=== PATIENT | female | born 1990 | race Caucasian/White ===

== ENCOUNTER → 2021-01-01 07:44 | Outpatient (CLI) | payer BC, SELFPAY ==
--- NOTE | 2021-01-01 07:47 | MR_ITS ---
PROCEDURE: MR HEAD/BRAIN WO CON CLINICAL INDICATION: FREQUENT HEADACHES COMPARISON: No exams were available for comparison TECHNIQUE: Routine multiplanar multi echo sequences are performed without gadolinium enhancement. FINDINGS: No midline shift, mass effect, intracranial hemorrhage, or hydrocephalus. No evidence of acute infarction. The cerebellopontine angles, cerebellum, and brainstem have an unremarkable appearance. The the pituitary, optic chiasm, corpus callosum, and craniocervical junction have an unremarkable appearance. Prominent cisterna magna is present as a normal variant. Unremarkable white matter signal intensity. No mastoid effusion. There is a small retention cyst involving the left maxillary sinus posteriorly at 13 mm. IMPRESSION: No acute intracranial findings. Negative MRI of the brain without contrast. Small left maxillary sinus retention cyst Dictated by: Carroll Interiano MD 01/02/2021 13:05 Carroll Interiano MD in [place] 01/02/2021 13:05
== END ==
PROVIDERS: PCP Family Medicine; Visit Provider Nurse Practitioner Family
DX: R51.9 Headache, unspecified (principal)
CPT/HCPCS: 70551

== ENCOUNTER → 2021-02-08 13:01 | Outpatient (CLI) | payer BC, SELFPAY | LOC: SL 13:02 | PROVIDERS: PCP Nurse Practitioner Family; Visit Provider Nurse Practitioner Family | DX: G47.30 Sleep apnea, unspecified (principal) | CPT/HCPCS: G0399 ==

== ENCOUNTER → 2021-02-08 17:11 | Outpatient (CLI) | payer BC, SELFPAY ==
--- NOTE | 2021-02-08 17:11 | MR_ITS ---
PROCEDURE INFORMATION: Exam: MRA Head Without Contrast; Arteriography Exam date and time: 02/08/2021 5:11 PM Age: 30 years old Clinical indication: Pain; Headache; Additional info: Worsening of headaches. Constant headache x11 months. No injury or trauma. Prior MR 01-01-21 TECHNIQUE: Imaging protocol: Magnetic resonance angiography head without contrast. Exam focused on the arteries. COMPARISON: MR HEAD/BRAIN WO CON 01/01/2021 8:11 AM FINDINGS: ANTERIOR CIRCULATION: Right internal carotid artery: Intracranial segment is patent with no significant stenosis. No aneurysm. Right middle cerebral artery: No occlusion or significant stenosis. No aneurysm. Right anterior cerebral artery: No occlusion or significant stenosis. No aneurysm. Left internal carotid artery: Intracranial segment is patent with no significant stenosis. No aneurysm. Left middle cerebral artery: No occlusion or significant stenosis. No aneurysm. Left anterior cerebral artery: No occlusion or significant stenosis. No aneurysm. POSTERIOR CIRCULATION: Right vertebral artery: No occlusion or significant stenosis. No aneurysm. Left vertebral artery: No occlusion or significant stenosis. No aneurysm. Basilar artery: No occlusion or significant stenosis. No aneurysm. Right posterior cerebral artery: No occlusion or significant stenosis. No aneurysm. Left posterior cerebral artery: No occlusion or significant stenosis. No aneurysm. IMPRESSION: Unremarkable MRA of the intracranial circulation.
== END ==
LOC: RAD 17:11
PROVIDERS: PCP Nurse Practitioner Family; Visit Provider Nurse Practitioner Family
DX: R51.9 Headache, unspecified (principal); G89.29 Other chronic pain
CPT/HCPCS: 70544

== ENCOUNTER 2022-01-17 08:02 | Emergency (ER) | payer BC, SELFPAY ==
[2022-01-17] VITALS (9 sets, daily range): BP systolic 101–177; BP diastolic 59–76; PULSE 80–111; RESP 16–20; TEMP 36.6; O2SAT 96–100; BMI 42.0; BMI 40.7
--- NOTE | 2022-01-17 08:43 | EXP.UTC ---
Discharge Plan Disposition Patient Disposition: Home, Self-Care Condition: Good Prescriptions Prescriptions: New ciprofloxacin HCl 750 mg tablet 750 mg PO DAILY Qty: 3 0RF ondansetron [ondansetron] 4 mg tablet,disintegrating 4 mg PO TIDP PRN (Reason: Nausea) Qty: 10 0RF No Action sertraline 100 mg tablet 100 mg PO DAILY atogepant 60 mg tablet 60 mg PO DAILY Qty: 30 5RF norethindrone (contraceptive) 0.35 mg tablet 0.35 mg PO DAILY Label Comments: TAKE 1 TABLET BY MOUTH ONCE DAILY rizatriptan 10 mg tablet,disintegrating See Rx Instructions PO .COMPLEX PRN (Reason: intractable headache) Qty: 10 0RF Rx Instructions: take 1 tab at onset of headache; if no relief may repeat 1 tab after at least 2 hrs; max = 2 tabs/24 hr PO metformin 850 mg tablet 850 mg PO DAILY omeprazole magnesium 20 mg tablet,delayed release (DR/EC) 40 mg PO DAILY Referrals Follow up/Referrals: Mandy Stevens APRN [Primary Care Provider] - See instructions Clinical Impressions Clinical Impression: Acute infectious diarrhea Stand Alone Forms Stand Alone Forms: Work/School Release Instructions Patient Instructions: DI for Diarrhea and Traveler's Diarrhea -- Adult Discharge ED [place]: [place] [facility] [place] General Chief complaint: Nausea/Vomiting/Diarrhea Stated complaint: Abd pain, fatigue, SALDIVAR Mode of Arrival: Ambulatory Source of Information: Patient Limitations: No Limitations Time Seen by Provider: 01/17/22 08:43 Description of Symptoms (Recalled from Triage Doc. by RN): PATIENT C/O DIARRHEA, MID-UPPER ABDOMINAL CRAMPING, NAUSEA, DECREASED ENERGY, AND HEADACHE THAT STARTED FRIDAY. HEENT Symptoms (Recalled from RN notes): Yes Resp Symptoms (Recalled from RN notes): No Skin Symptoms (Recalled from RN notes): No MS Symptoms (Recalled from RN notes): No Functional Status (Recalled from RN notes): WNL History of Present Illness Provider Complaint: Patient states that she started feeling bad on Friday States that she started with watery diarrhea, and has continued to have watery diarrhea, nausea but no vomiting, cramping in her mid abdomen body aches and fatigue States that she has a bad stomach and today she was still having diarrhea so she came in to get checked out States that she has had gall bladder removed and [place] gastric [place] [address] [place] Related Data Home Medications Medication Instructions Recorded Confirmed metformin 850 mg tablet 850 mg PO DAILY PCOS 01/29/21 01/17/22 omeprazole magnesium 20 mg 40 mg PO DAILY stomach 01/29/21 03/27/21 tablet,delayed release sertraline 100 mg tablet 100 mg PO DAILY mood 01/29/21 01/17/22 norethindrone (contraceptive) 0.35 0.35 mg PO DAILY control 03/27/21 01/17/22 mg tablet Previous Rx's Medication Instructions Recorded atogepant 60 mg tablet 60 mg PO DAILY chronic migraine 01/29/21 #30 tabs rizatriptan 10 mg disintegrating See Rx Instructions PO .COMPLEX 03/27/21 tablet PRN intractable headache #10 tabs ciprofloxacin HCl 750 mg tablet 750 mg PO DAILY #3 tabs 01/17/22 ondansetron 4 mg disintegrating 4 mg PO TIDP PRN Nausea #10 tabs 01/17/22 tablet Allergies Allergy/AdvReac Type Severity Reaction Status Date / Time clarithromycin Allergy Intermediate Hives Verified 03/27/21 10:29 sucralfate [From Carafate] Allergy Mild hives Verified 03/27/21 10:29 Worker's Comp Is this a Worker's Comp case?: No PFSH PFSH Surgical History (Updated 01/17/22 @ 08:42 by Clari Benavides RN) History of cholecystectomy Social History (Updated 01/17/22 @ 08:42 by Clari Benavides RN) Smoking Status: Never smoker alcohol intake: current substance use type: denies use current occupational status: employed Travel in the last 8 weeks: None household members: family and children housing: house caffeine: No ROS Obtained: Yes All systems reviewed & no additional
[2022-01-17 08:55] LABS: UTC Influenza A Antigen Negative (Negative)
[2022-01-17 08:56] LABS: UTC Influenza B Antigen Negative (Negative)
[2022-01-17 09:05] LABS: Adenovirus F 40/41, stool Not Detected (NotDetected); Astrovirus Not Detected (NotDetected); Campylobacter Not Detected (NotDetected); Clostridium Difficile A/B, PCR Not Detected (NotDetected); Cryptosporidium Not Detected (NotDetected); Cyclospora Cayetanesis Not Detected (NotDetected); Entamoeba histolytica Not Detected (NotDetected); Enteropathogenic E coli Not Detected (NotDetected); Enterotoxigenic E coli Not Detected (NotDetected); Giardia lamblia Not Detected (NotDetected); Norovirus Not Detected (NotDetected); Plesimonas Shigalloides, PCR Not Detected (NotDetected); Rotavirus A Not Detected (NotDetected); Salmonella, PCR Not Detected (NotDetected); Shiga-like toxin E coli Not Detected (NotDetected); Shigella Enterovasive E coli Not Detected (NotDetected); Vibrio Cholerae Not Detected (NotDetected); Vibrio, PCR Not Detected (NotDetected); Yersinia Entercolitica, PCR Not Detected (NotDetected)
--- NOTE | 2022-01-17 09:51 | CT_ITS ---
FINAL REPORT TECHNIQUE: Postcontrast axial images through the abdomen and pelvis were performed. This study was performed with techniques to keep radiation doses as low as reasonably achievable, (ALARA). Individualized dose reduction techniques using automated exposure control or adjustment of mA and/or kV according to the patient's size were employed. CLINICAL HISTORY: diarrhea, history of gastric sleeve FINDINGS: Abdomen: There is a small sliding-type hiatal hernia. Postoperative changes are seen from gastric sleeve. The liver is mildly fatty infiltrated. The gallbladder is absent. The spleen is unremarkable. The adrenals are normal. The pancreas is unremarkable. The kidneys enhance appropriately. The aorta is normal in caliber. No free fluid or adenopathy is identified. No findings for mechanical bowel obstruction are identified. There is fluid within the colon. There is no mucosal thickening or pericolonic inflammation. Pelvis: The appendix is not identified. The urinary bladder is unremarkable. No free fluid, free air, abscess or adenopathy is identified. The uterus is anteverted. IMPRESSION: Fluid throughout the colon. Postoperative change from gastric sleeve. Reviewed, Interpreted and Dictated by Isrrael Prasad MD Transcribed by Sabino Barnes Authenticated and [facility]
--- NOTE | 2022-01-17 09:54 | HMH.EDGENADL ---
Discharge Plan Disposition Patient Disposition: Home, Self-Care Condition: Good Prescriptions Prescriptions: New ciprofloxacin HCl 750 mg tablet 750 mg PO DAILY Qty: 3 0RF ondansetron [ondansetron] 4 mg tablet,disintegrating 4 mg PO TIDP PRN (Reason: Nausea) Qty: 10 0RF No Action sertraline 100 mg tablet 100 mg PO DAILY atogepant 60 mg tablet 60 mg PO DAILY Qty: 30 5RF norethindrone (contraceptive) 0.35 mg tablet 0.35 mg PO DAILY Label Comments: TAKE 1 TABLET BY MOUTH ONCE DAILY rizatriptan 10 mg tablet,disintegrating See Rx Instructions PO .COMPLEX PRN (Reason: intractable headache) Qty: 10 0RF Rx Instructions: take 1 tab at onset of headache; if no relief may repeat 1 tab after at least 2 hrs; max = 2 tabs/24 hr PO metformin 850 mg tablet 850 mg PO DAILY omeprazole magnesium 20 mg tablet,delayed release (DR/EC) 40 mg PO DAILY Referrals Follow up/Referrals: Mandy Stevens APRN [Primary Care Provider] - See instructions Clinical Impressions Clinical Impression: Acute infectious diarrhea Instructions Patient Instructions: DI for Diarrhea and Traveler's Diarrhea -- Adult Discharge ED Provider: Jimmy Joseph General Adult HPI General Chief complaint: Nausea/Vomiting/Diarrhea Stated complaint: Abd pain, fatigue, SALDIVAR Time Seen by Provider: 01/17/22 08:43 Mode of Arrival: Ambulatory Source of Information: Patient Limitations: No Limitations Description of Symptoms (Recalled from ER Triage Doc. by RN): PATIENT C/O DIARRHEA, MID-UPPER ABDOMINAL CRAMPING, NAUSEA, DECREASED ENERGY, AND HEADACHE THAT STARTED FRIDAY. History of Present Illness HPI narrative: Patient is a 31-year-old female with a past medical history of gastric sleeve, diabetes, GERD who presents with concern for diarrhea. She says that starting on Friday she got acute onset of diarrhea. She says that it is profuse and watery. No recent antibiotic usage. She says that she is also having some upper abdominal cramping but says that it is more of a generalized discomfort in her abdomen. She says that she has been quite nauseous during this time as well. Denies any hematemesis or hematochezia. She states that she feels like she does not have much energy. She has had a cholecystectomy in the past. Denies any history of complications with her gastric sleeve. Has not had much of an appetite due to the nausea. She was seen in the urgent care earlier and when her IV was placed she had an episode in which she became unconscious and had seizure-like activity. She had a short postictal phase that was reported to be only a few seconds and she was back to her normal baseline. No history of seizure-like activity. Denies any fever or chills. Related Data Home Medications Medication Instructions Recorded Confirmed metformin 850 mg tablet 850 mg PO DAILY PCOS 01/29/21 01/17/22 omeprazole magnesium 20 mg 40 mg PO DAILY stomach 01/29/21 03/27/21 tablet,delayed release sertraline 100 mg tablet 100 mg PO DAILY mood 01/29/21 01/17/22 norethindrone (contraceptive) 0.35 0.35 mg PO DAILY control 03/27/21 01/17/22 mg tablet Previous Rx's Medication Instructions Recorded atogepant 60 mg tablet 60 mg PO DAILY chronic migraine 01/29/21 #30 tabs rizatriptan 10 mg disintegrating See Rx Instructions PO .COMPLEX 03/27/21 tablet PRN intractable headache #10 tabs ciprofloxacin HCl 750 mg tablet 750 mg PO DAILY #3 tabs 01/17/22 ondansetron 4 mg disintegrating 4 mg PO TIDP PRN Nausea #10 tabs 01/17/22 tablet Allergies Allergy/AdvReac Type Severity Reaction Status Date / Time clarithromycin Allergy Intermediate Hives Verified 03/27/21 10:29 sucralfate [From Carafate] Allergy Mild hives Verified 03/27/21 10:29 [facility] Surgical History (Updated 01/17/22 @ 08:42 by Clari Benavides RN) History of cholecystectomy Social History (Updated 01/17/22 @ 08:42 by Clari Boudreaux
[2022-01-17 10:01] LABS: Basophils % 0.5 % (0.1-2.0); Eosinophils # 0.2 K/mm3 (0.0-0.4); Eosinophils % 2.2 % (0.1-12.0); Hematocrit 36.8 % (37.0-47.0); Hemoglobin 11.8 g/dL (12.2-16.2); Lymphocytes # 1.3 K/mm3 (0.7-4.5); Lymphocytes % 15.2 % (10-50); Mean Corpuscular HGB Conc 32.2 g/dL (31.8-35.4); Mean Corpuscular Hemoglobin 25.9 pg (27.0-31.2); Mean Corpuscular Volume 80.4 fl (81-99); Mean Platelet Volume 7.7 fl (7.4-10.4); Monocytes # 0.4 K/mm3 (0.1-1.0); Neutrophils # 6.4 K/mm3 (1.8-7.8); Neutrophils % 76.9 % (37.0-80.0); Platelet Count 655 K/mm3 (142-424); Red Blood Count 4.57 M/mm3 (4.20-5.40); Red Cell Distribution Width 17.1 % (11.5-17.5); White Blood Count 8.4 K/mm3 (4.8-10.8)
[2022-01-17 10:16] LABS: Chloride 103 mmol/L (98-107); Potassium 3.3 mmoL/L (3.5-5.1); Sodium 139 mmol/L (136-145)
[2022-01-17 10:19] LABS: Magnesium 1.8 mg/dl (1.6-2.3)
--- NOTE | 2022-01-17 10:24 | PC.NURSE ---
Gave pt a pillow
[2022-01-17 10:25] LABS: Lactic Acid 2.2 mmol/L (0.7-2.1)
[2022-01-17 10:28] LABS: HCG Qualitative, Serum Negative (Negative)
[2022-01-17 10:31] LABS: Erythrocyte Sedimentation Rate 38 mm/hr (0-20)
[2022-01-17 10:42] LABS: Procalcitonin 0.211 ng/mL (0.0-2.0)
--- NOTE | 2022-01-17 10:43 | PC.NURSE ---
pt in CT
[2022-01-17 10:45] LABS: Alanine Aminotransferase 24 U/L (12-78); Albumin Level 4.3 g/dl (3.5-5.0); Albumin/Globulin Ratio 1.3 (1.1-1.8); Alkaline Phosphatase 100 U/L (38-126); Anion Gap 18.3 mEq/L (5-15); Aspartate Amino Transferase 26 U/L (14-36); Bilirubin,Total 0.4 mg/dl (0.2-1.3); Blood Urea Nitrogen 10 mg/dl (7-17); C-Reactive Protein 49.7 mg/L (0-4); Calcium 9.2 mg/dl (8.4-10.2); Carbon Dioxide 21 mmol/L (22.0-30.0); Creatinine Clearance Estimated 170 mL/min (50-200); Estimated Glomerular Filt Rate 74 ml/min (>60); GFR (African American) 89 ML/MIN (>60); Globulin 3.2 g/dL (1.3-3.2); Glucose 119 mg/dl (74-100); Lipase 24 U/L (23-300); Total Protein,Serum 7.5 g/dl (6.3-8.2)
--- NOTE | 2022-01-17 11:08 | PC.NURSE ---
pt resting in bed at this time, family at BS, states no needs at this time, call light within reach
[2022-01-17 11:42] LABS: Sapovirus Detected (NotDetected)
[2022-01-17 11:43] LABS: Enteroaggregative E coli Detected (NotDetected)
--- NOTE | 2022-01-17 11:46 | PC.NURSE ---
Critical called form Yarely in lab. Entero Agregative E-Coli was stated, and repeated and onfirmed.
[2022-01-17 13:56] LABS: Reflex Lactic Add Lactic Reflex
== END 2022-01-17 12:31 | disposition home or self-care (01) ==
LOC: UTC 08:05 → ER 09:43
PROVIDERS: Nurse Practitioner; Emergency Provider Student in an Organized Health Care Education/Training Program; PCP Nurse Practitioner Family
DX: A09 Infectious gastroenteritis and colitis, unspecified (principal); Z79.3 Long term (current) use of hormonal contraceptives; Z79.84 Long term (current) use of oral hypoglycemic drugs; Z79.899 Other long term (current) drug therapy; Z88.1 Allergy status to other antibiotic agents; Z87.19 Personal history of other diseases of the digestive system
CPT/HCPCS: 74177; 80053; 83605; 83690; 83735; 84145; 84703; 85025; 85651; 86140; 87507; 87804; 96365; 99284; Q9967

== ENCOUNTER → 2022-02-18 15:05 | Outpatient (CLI) | payer BC, SELFPAY ==
--- NOTE | 2022-02-18 15:10 | XR_ITS ---
FINAL REPORT CLINICAL HISTORY: R ARM NUMBNESS, NEW ON SET SALDIVAR FINDINGS: CERVICAL SPINE Five views were obtained. There is no acute fracture. There is no malalignment. There is straightening of the normal cervical curvature which could be due to positioning or muscle spasm. There is mild kyphosis centered at C4-C5. The disc spaces are preserved. IMPRESSION: No acute process. Reviewed, Interpreted and Dictated by Charles Bar III, MD Transcribed by Sabino Barnes Authenticated and [facility]
== END ==
LOC: RAD 15:06
PROVIDERS: PCP Nurse Practitioner Family; Visit Provider Nurse Practitioner Family
DX: M54.2 Cervicalgia (principal); R51.9 Headache, unspecified; R20.0 Anesthesia of skin
CPT/HCPCS: 72050

== ENCOUNTER → 2022-03-22 08:00 | Outpatient (CLI) | payer BC, SELFPAY ==
--- NOTE | 2022-03-22 08:05 | MR_ITS ---
FINAL REPORT TECHNIQUE: Multiplanar and multisequence imaging of the cervical spine was obtained. CLINICAL HISTORY: CERVICALGIA, DECREASED ROM OF NECK. FOR 2 MONTHS WHEN TURNING NECK GETS DIZZY AND HAS RIGHT ARM NUMBNESS AND TINGLING. COMPARISON: none FINDINGS: Alignment is normal. Vertebral body height is preserved. Signal intensity within the substance of the spinal cord is normal. Bone marrow signal intensity is normal. Paraspinal soft tissues are within normal limits. C2/3: There is no focal disc herniation, central stenosis or neural foraminal narrowing. C3/4: There is no focal disc herniation, central stenosis or neural foraminal narrowing. C4/5: There is no focal disc herniation, central stenosis or neural foraminal narrowing. C5/6: Annular disc bulge. No central canal stenosis or foraminal narrowing.. C6/7: There is no focal disc herniation, central stenosis or neural foraminal narrowing. C7/T1: There is no focal disc herniation, central stenosis or neural foraminal narrowing. IMPRESSION: No focal disc herniation, central stenosis, or neural foraminal narrowing. Reviewed, Interpreted and Dictated by Sheron Greer MD Transcribed by Geno Smith Authenticated and [facility]
--- NOTE | 2022-03-22 08:05 | MR_ITS ---
FINAL REPORT TECHNIQUE: Multiplanar and multisequence imaging of the brain was obtained before and after contrast administration. CLINICAL HISTORY: PAPILLEDEMA OF BOTH EYES, DIZZINESS. HEADACHE. BLURRED VISION. FOR 2 MONTHS WHEN TURNING NECK GETS DIZZY AND HAS RIGHT ARM NUMBNESS AND TINGLING. 24ML PROHANCE GIVEN COMPARISON: 01/01/2021 FINDINGS: There is no mass effect or midline shift. Signal intensity is normal. No hydrocephalus. Flow voids within major intracranial vessels are preserved. Posterior fossa is without acute abnormality. There are no areas of restricted diffusion on diffusion weighted images to suggest acute infarct. Soft tissues are without acute abnormality. The stable mucous retention cyst or polyp in the left maxillary sinus. No pathologic contrast enhancement is identified. IMPRESSION: No acute intracranial abnormality and no pathologic contrast enhancement. Reviewed, Interpreted and Dictated by Sheron Greer MD Transcribed by Geno Smith Authenticated and [facility]
== END ==
LOC: RAD 08:01
PROVIDERS: PCP Nurse Practitioner Family; Visit Provider Nurse Practitioner Family
DX: R42 Dizziness and giddiness (principal); H47.10 Unspecified papilledema; R51.9 Headache, unspecified
CPT/HCPCS: 70553; 72141; 76376; A9576

== ENCOUNTER → 2022-04-26 12:09 | Day surgery (SDC) | payer BC, SELFPAY ==
[2022-04-26 12:49] VITALS: BP 128/68; PULSE 98; RESP 18; O2SAT 97; BMI 40.7
[2022-04-26 12:59] LABS: Basophils # 0.1 K/mm3 (0-0.2); Basophils % 0.5 % (0.1-2.0); Eosinophils # 0.1 K/mm3 (0.0-0.4); Eosinophils % 0.7 % (0.1-12.0); Hematocrit 33.5 % (37.0-47.0); Hemoglobin 9.9 g/dL (12.2-16.2); Lymphocytes # 2.1 K/mm3 (0.7-4.5); Lymphocytes % 13.4 % (10-50); Mean Corpuscular HGB Conc 29.4 g/dL (31.8-35.4); Mean Corpuscular Hemoglobin 20.9 pg (27.0-31.2); Mean Corpuscular Volume 70.9 fl (81-99); Mean Platelet Volume 7.4 fl (7.4-10.4); Monocytes # 0.7 K/mm3 (0.1-1.0); Monocytes % 4.6 % (1.7-9.3); Neutrophils # 12.6 K/mm3 (1.8-7.8); Neutrophils % 80.8 % (37.0-80.0); Platelet Count 718 K/mm3 (142-424); Red Blood Count 4.72 M/mm3 (4.20-5.40); Red Cell Distribution Width 19.7 % (11.5-17.5); White Blood Count 15.6 K/mm3 (4.8-10.8)
[2022-04-26 13:06] LABS: MANUAL DIFFERENTIAL MANUAL DIFFERENTIAL (MANUAL DIFF)
[2022-04-26 13:18] LABS: Chloride 104 mmol/L (98-107); Potassium 4.1 mmoL/L (3.5-5.1); Sodium 137 mmol/L (136-145)
[2022-04-26 13:20] LABS: Blood Urea Nitrogen 15 mg/dl (7-17); Creatinine Clearance Estimated 219 mL/min (50-200); Estimated Glomerular Filt Rate 98 ml/min (>60); GFR (African American) 119 ML/MIN (>60)
[2022-04-26 13:21] LABS: Alanine Aminotransferase 26 U/L (12-78); Albumin Level 4.3 g/dl (3.5-5.0); Albumin/Globulin Ratio 1.3 (1.1-1.8); Alkaline Phosphatase 88 U/L (38-126); Anion Gap 11.1 mEq/L (5-15); Aspartate Amino Transferase 30 U/L (14-36); Bilirubin,Total 0.3 mg/dl (0.2-1.3); Carbon Dioxide 26 mmol/L (22.0-30.0); Globulin 3.3 g/dL (1.3-3.2); Glucose 115 mg/dl (74-100); HCG Qualitative, Serum Negative (Negative); Total Protein,Serum 7.6 g/dl (6.3-8.2)
[2022-04-26 13:22] LABS: Calcium 8.5 mg/dl (8.4-10.2)
[2022-04-26 13:31] LABS: Lymphocytes % 23 % (10-50); Monocytes % 2 % (2-9); Neutrophils % 75 % (42-76); Total Cells Counted 100
[2022-04-26 13:32] LABS: Microcytosis 1+; Platelet Estimate Marked Increase
[2022-04-26 13:33] LABS: Hypochromasia 2+
[2022-04-26 13:53] LABS: Thyroid Stimulating Hormone 0.28 uIU/mL (0.465-4.68)
[2022-04-26 14:09] LABS: Hemoglobin A1C 5.3 % (4.0-6.0)
[2022-04-26 14:35] VITALS: BP 133/80; PULSE 79; RESP 18; O2SAT 98
[2022-04-26 14:37] VITALS: BP 133/80; PULSE 79; RESP 18; O2SAT 98
[2022-04-26 15:12] LABS: Appearance,CSF Clear (Clear); Volume,CSF 20 mL
[2022-04-26 15:13] LABS: Appearance,CSF Clear (Clear); Volume,CSF 20 mL
[2022-04-26 15:17] LABS: Glucose,CSF 62 mg/dl (40-70)
[2022-04-26 15:30] LABS: Red Blood Cell,CSF 21 cells/uL (0); Red Blood Cell,CSF 7 cells/uL (0); White Blood Cell,CSF 1 cells/uL (0-5); White Blood Cell,CSF 3 cells/uL (0-5)
--- NOTE | 2022-04-26 15:59 | EXP.PAIN.PRO ---
Procedure Date: 04/26/22 Time: 15:59 Anesthesiologist:: Randal Miller MD Complications:: None Pre-procedure Diagnosis:: Patient with papilledema and headache Post-procedure Diagnosis:: Same Indications for Procedure:: This patient is a pleasant 31-year-old white female who was referred by Dr. Snell for diagnostic lumbar puncture to obtain opening and closing pressures and obtain CSF for indicated studies. Patient does have papilledema bilaterally and headaches with increased CSF pressure suspected Procedure Details:: Lumbar puncture Informed consent was obtained the risk and benefits of the procedure were explained to the patient. The patient was taken to the procedure room. She was placed in a left lateral decubitus position. C-arm fluoroscopy was used and a AP view to the patient. The skin and subtenons tissues were anesthetized using lidocaine. A 20-gauge spinal needle was inserted and advanced into the L4-5 interspace until clear CSF was obtained. Opening pressures were taken and found to be 23 cm of water. We obtained approximately 20 mL of clear CSF placed into a total of 4 tubes. Closing pressures were found to be 15 cm of water. The needle was withdrawn a Band-Aid was placed. The patient was taken recovery in stable condition. The patient did have a headache however it was not unusual from the headache that she has been having the last few weeks. We advised patient on conservative treatments for post dural puncture headache. We will follow-up with her as needed. CSF was sent for indicated studies. Plan and Disposition:: We will follow-up with this patient as needed. We did application counselor her on the treatment for post dural puncture headache. If she does have a headache she is to call us back in the pain clinic
[2022-04-26 16:32] LABS: Mononuclear WBCs,CSF 0 %; Polynuclear WBCs,CSF 1 %
[2022-04-26 16:33] LABS: Mononuclear WBCs,CSF 0 %; Polynuclear WBCs,CSF 1 %
[2022-04-26 19:06] LABS: Vitamin B12 337 pg/mL (239-931)
[2022-04-26 19:12] LABS: Folate 4.16 ng/mL
[2022-04-30 16:21] LABS: CAP Mandated Reflex to Culture Not Indicated (.); Cryptococcus Antigen, CSF Negative (Negative)
[2022-04-30 17:37] LABS: VDRL, Cerebrospinal Fluid Non Reactive (Non Rea:<1:1)
[2022-05-01 18:09] LABS: CSF Lyme (B. burgdorferi) PCR Negative (Negative)
[2022-05-04 21:23] LABS: Antinuclear Antibodies (ANA) NEGATIVE
== END | disposition home or self-care (01) ==
PROVIDERS: Nurse Practitioner Family; Specialist; PCP Nurse Practitioner Family; Visit Provider Anesthesiology
DX: R51.9 Headache, unspecified (principal); H47.10 Unspecified papilledema
CPT/HCPCS: 36415; 62328; 80053; 82607; 82746; 82945; 83036; 84155; 84443; 84703; 85007; 85025; 86038; 86592; 87070; 87102; 87116; 87205; 87206; 87476; 87899; 89051

== ENCOUNTER 2022-04-29 17:30 | Emergency (ER) | payer BC, SELFPAY ==
[2022-04-29 17:39] VITALS: BP 131/71; PULSE 95; RESP 17; TEMP 37.1; O2SAT 98; BMI 40.7
--- NOTE | 2022-04-29 17:53 | HMH.EDGENADL ---
Discharge Plan Disposition Patient Disposition: Home, Self-Care Condition: Good Prescriptions Prescriptions: New glknrvzwzz-thblehxgzmrai-innl [Fioricet] 50-300-40 mg capsule 1 cap PO Q6H PRN (Reason: pain) Qty: 7 0RF No Action sertraline 100 mg tablet 100 mg PO DAILY norethindrone (contraceptive) 0.35 mg tablet 0.35 mg PO DAILY Label Comments: TAKE 1 TABLET BY MOUTH ONCE DAILY metformin 500 mg tablet 500 mg PO DAILY omeprazole 40 mg capsule,delayed release(DR/EC) 40 mg PO DAILY Label Comments: TAKE 1 CAPSULE BY MOUTH ONCE DAILY acetazolamide 250 mg tablet 250 - 500 mg PO BID 30 Days Qty: 120 1RF Rx Instructions: after completing steroids, start 250mg (1 tab) by mouth twice a day for 1wk, in not intolerance or side effects then increase to 500mg (2 tab) twice a day until follow up. Referrals Follow up/Referrals: Mandy Stevens APRN [Primary Care Provider] - See instructions Activity Restrictions/Add. Instructions Additional Instructions/Restrictions: Follow-up tomorrow with anesthesiologist as discussed. The address is [address] [place] [address] in [place], [place], anytime after 8:30 AM. Clinical Impressions Clinical Impression: Headache Discharge ED Provider: Kit Momin Adult HPI General Chief complaint: Headache Stated complaint: lumbar puncture 04/26, h/a, unable to stand up Time Seen by Provider: 04/29/22 17:50 Mode of Arrival: Ambulatory Source of Information: Patient Limitations: No Limitations Description of Symptoms (Recalled from ER Triage Doc. by RN): Pt c/o constant headache if upright following lumbar puncture 04/26, nausea, but no paresthesia, syncope, visual changes History of Present Illness HPI narrative: Patient presents complaining of headache. She status post lumbar puncture December 24 and since that time she has been having headaches that are worse when she is upright and relieved with being supine. She denies fever or vomiting. She says she is being evaluated for increased intracranial pressure. She denies any neurological symptoms at this time Related Data Home Medications Medication Instructions Recorded Confirmed sertraline 100 mg tablet 100 mg PO DAILY mood 01/29/21 04/26/22 norethindrone (contraceptive) 0.35 0.35 mg PO DAILY control 03/27/21 04/26/22 mg tablet metformin 500 mg tablet 500 mg PO DAILY Diabetes 04/23/22 04/26/22 omeprazole 40 mg capsule,delayed 40 mg PO DAILY STOMACH 04/23/22 04/26/22 release Previous Rx's Medication Instructions Recorded acetazolamide 250 mg tablet 250 - 500 mg PO BID papilledema 30 04/24/22 days #120 tabs tbiwpogieh-ejcdmkweksyln-tkaugrxt 1 cap PO Q6H PRN pain #7 caps 04/29/22 50 mg-300 mg-40 mg capsule (Fioricet) Allergies Allergy/AdvReac Type Severity Reaction Status Date / Time clarithromycin Allergy Intermediate Hives Verified 04/23/22 13:58 sucralfate [From Carafate] Allergy Mild hives Verified 04/23/22 13:58 [facility] Disclaimer: The information contained in this section may have been updated after the patient was seen, as this information can be updated by other users. Medical History Migraine headache Polycystic ovarian syndrome Surgical History History of cholecystectomy History of gastric restrictive surgery Social History Smoking Status: Never smoker alcohol intake: current substance use type: denies use current occupational status: employed Travel in the last 8 weeks: None household members: family and children housing: house caffeine: No ROS Obtained: Yes All systems reviewed & no additional complaints except as documented Physical Exam General General appearance: alert and in no apparent distress Head Head exam: atraumatic, normocephalic and normal inspection Ey
[2022-04-29 18:11] LABS: Chloride 106 mmol/L (98-107)
[2022-04-29 18:12] LABS: Potassium 4.2 mmoL/L (3.5-5.1); Sodium 138 mmol/L (136-145)
[2022-04-29 18:14] LABS: Blood Urea Nitrogen 16 mg/dl (7-17); Creatinine Clearance Estimated 255 mL/min (50-200); Estimated Glomerular Filt Rate 117 ml/min (>60); GFR (African American) 142 ML/MIN (>60)
[2022-04-29 18:15] LABS: Anion Gap 10.2 mEq/L (5-15); Calcium 8.7 mg/dl (8.4-10.2); Carbon Dioxide 26 mmol/L (22.0-30.0); Glucose 83 mg/dl (74-100)
[2022-04-29 18:16] LABS: INR 0.95 (0.9-1.1); Prothrombin Time 10.3 seconds (10.1-12.5)
[2022-04-29 18:28] LABS: Basophils # 0.1 K/mm3 (0-0.2); Basophils % 0.5 % (0.1-2.0); Eosinophils # 0.2 K/mm3 (0.0-0.4); Eosinophils % 1.1 % (0.1-12.0); Hematocrit 33.9 % (37.0-47.0); Hemoglobin 10.6 g/dL (12.2-16.2); Lymphocytes # 2.4 K/mm3 (0.7-4.5); Lymphocytes % 16.9 % (10-50); Mean Corpuscular HGB Conc 31.3 g/dL (31.8-35.4); Mean Corpuscular Hemoglobin 20.9 pg (27.0-31.2); Mean Corpuscular Volume 66.8 fl (81-99); Mean Platelet Volume 7.1 fl (7.4-10.4); Monocytes # 1.1 K/mm3 (0.1-1.0); Monocytes % 7.6 % (1.7-9.3); Neutrophils # 10.3 K/mm3 (1.8-7.8); Neutrophils % 73.9 % (37.0-80.0); Platelet Count 795 K/mm3 (142-424); Red Blood Count 5.08 M/mm3 (4.20-5.40); Red Cell Distribution Width 19.5 % (11.5-17.5); White Blood Count 13.9 K/mm3 (4.8-10.8)
[2022-04-29 19:18] VITALS: BP 119/71; PULSE 71; RESP 17; TEMP 36.8; O2SAT 98
== END 2022-04-29 20:06 | disposition home or self-care (01) ==
PROVIDERS: Emergency Provider Emergency Medicine; PCP Nurse Practitioner Family
DX: G97.1 Other reaction to spinal and lumbar puncture (principal); G43.909 Migraine, unspecified, not intractable, without status migrainosus; E28.2 Polycystic ovarian syndrome; Z90.49 Acquired absence of other specified parts of digestive tract; Z98.84 Bariatric surgery status
CPT/HCPCS: 80048; 85025; 85610; 96360; 99285

== ENCOUNTER → 2022-04-30 16:33 | Outpatient (CLI) | payer BC, SELFPAY ==
--- NOTE | 2022-04-30 16:34 | MR_ITS ---
PROCEDURE INFORMATION: Exam: MRA Head Without and With Contrast, Venography Exam date and time: 04/30/2022 4:38 PM Age: 31 years old Clinical indication: Visual disturbance; Sudden visual loss; Additional info: Eval for venous thrombosis, acute papilledema TECHNIQUE: Imaging protocol: Magnetic resonance angiography of the head without and with contrast. Angiographic sequences such as Knyn-io-fagini (TOF) or Time-resolved contrast techniques were performed. Exam focused on the veins. Contrast material: PROHANCE; Contrast volume: 23 ml; Contrast route: IV; COMPARISON: MR ANGIO HEAD WO CON 02/08/2021 5:25 PM FINDINGS: Superior sagittal sinus: Patent. Straight sinus: Patent. Transverse sinuses: Patent. Sigmoid sinuses: Patent. Internal jugular veins: Visualized segments patent. IMPRESSION: No evidence of venous thrombus.
== END ==
LOC: RAD 16:34
PROVIDERS: PCP Nurse Practitioner Family; Visit Provider Nurse Practitioner Family
DX: R51.9 Headache, unspecified (principal); H47.10 Unspecified papilledema; H53.9 Unspecified visual disturbance; E11.69 Type 2 diabetes mellitus with other specified complication; E66.9 Obesity, unspecified; Z68.41 Body mass index [BMI] 40.0-44.9, adult; Z79.84 Long term (current) use of oral hypoglycemic drugs
CPT/HCPCS: 70546; A9576

== ENCOUNTER → 2022-05-14 11:19 | Outpatient (CLI) | payer BC, SELFPAY ==
[2022-05-14 12:50] LABS: Iron 28 ug/dL (37-170)
[2022-05-14 12:59] LABS: Total Iron Binding Capacity 458 ug/dL (265-497)
[2022-05-14 13:08] LABS: Free Thyroxine Index 1.8 ug/dL (5.93-13.13); T4 (Thyroxine) 6.1 ug/dl (5.53-11.0); Triiodothryronine (T3) Uptake 30 % (23.5-40.5)
[2022-05-14 13:22] LABS: Thyroid Stimulating Hormone 0.74 uIU/mL (0.465-4.68)
[2022-05-14 13:25] LABS: Ferritin 4.43 ng/ml (6.24-137)
[2022-05-17 20:08] LABS: Methylmalonic Acid 104 nmol/L (0-378)
== END ==
PROVIDERS: PCP Nurse Practitioner Family; Visit Provider Nurse Practitioner Family
DX: D75.839 Thrombocytosis, unspecified (principal); D64.9 Anemia, unspecified; E11.69 Type 2 diabetes mellitus with other specified complication; H47.10 Unspecified papilledema; R51.9 Headache, unspecified; E66.9 Obesity, unspecified; Z68.41 Body mass index [BMI] 40.0-44.9, adult; Z79.84 Long term (current) use of oral hypoglycemic drugs
CPT/HCPCS: 36415; 82131; 82728; 83090; 83540; 83550; 84436; 84443; 84479

== ENCOUNTER 2022-06-04 13:31 | Outpatient (CLI) | payer BC, SELFPAY ==
[2022-06-04 13:53] VITALS: BP 117/53; PULSE 71; RESP 18; TEMP 36.8; O2SAT 100
[2022-06-04 14:37] VITALS: BP 124/72; PULSE 74; RESP 18; O2SAT 98
== END 2022-06-04 14:37 | disposition home or self-care (01) ==
LOC: INF 13:32
PROVIDERS: PCP Nurse Practitioner Family; Visit Provider Nurse Practitioner Family
DX: D50.8 Other iron deficiency anemias (principal)
CPT/HCPCS: 96365; J1756

== ENCOUNTER 2022-06-11 12:45 | Outpatient (CLI) | payer BC, SELFPAY ==
[2022-06-11 13:01] VITALS: BP 113/64; PULSE 74; RESP 18; TEMP 36.6; O2SAT 98
[2022-06-11 13:45] VITALS: BP 109/59; PULSE 79; RESP 18; O2SAT 98
== END 2022-06-11 13:45 | disposition home or self-care (01) ==
LOC: INF 12:45
PROVIDERS: PCP Nurse Practitioner Family; Visit Provider Nurse Practitioner Family
DX: D50.8 Other iron deficiency anemias (principal)
CPT/HCPCS: 96365; J1756

== ENCOUNTER 2022-06-18 12:08 | Outpatient (CLI) | payer BC, SELFPAY ==
[2022-06-18 12:22] VITALS: BP 132/75; PULSE 75; RESP 18; O2SAT 99
[2022-06-18 13:00] VITALS: BP 123/59; PULSE 78; RESP 18
== END 2022-06-18 13:00 | disposition home or self-care (01) ==
LOC: INF 12:09
PROVIDERS: PCP Nurse Practitioner Family; Visit Provider Nurse Practitioner Family
DX: D50.8 Other iron deficiency anemias (principal)
CPT/HCPCS: 96365; J1756

== ENCOUNTER 2022-06-25 11:11 | Outpatient (CLI) | payer BC, SELFPAY ==
[2022-06-25 11:29] VITALS: BP 135/71; PULSE 74; RESP 18; O2SAT 99
[2022-06-25 12:05] VITALS: BP 132/72; PULSE 84; RESP 18
== END 2022-06-25 12:05 | disposition home or self-care (01) ==
LOC: INF 11:11
PROVIDERS: PCP Nurse Practitioner Family; Visit Provider Nurse Practitioner Family
DX: D50.8 Other iron deficiency anemias (principal)
CPT/HCPCS: 96365; J1756

== ENCOUNTER 2022-07-02 11:33 | Outpatient (CLI) | payer BC, SELFPAY ==
[2022-07-02 12:49] VITALS: BP 118/70; PULSE 60; RESP 18; O2SAT 100
== END 2022-07-02 12:49 | disposition home or self-care (01) ==
LOC: INF 11:33
PROVIDERS: PCP Nurse Practitioner Family; Visit Provider Nurse Practitioner Family
DX: D50.8 Other iron deficiency anemias (principal)
CPT/HCPCS: 96365; J1756

== ENCOUNTER → 2022-07-24 11:21 | Outpatient (CLI) | payer BC, SELFPAY ==
[2022-07-24 12:32] LABS: Basophils % 0.2 % (0.1-2.0); Eosinophils # 0.3 K/mm3 (0.0-0.4); Eosinophils % 3.5 % (0.1-12.0); Hematocrit 43.1 % (37.0-47.0); Lymphocytes # 1.5 K/mm3 (0.7-4.5); Lymphocytes % 17.8 % (10-50); Mean Corpuscular Hemoglobin 25.9 pg (27.0-31.2); Mean Corpuscular Volume 86.2 fl (81-99); Mean Platelet Volume 7.4 fl (7.4-10.4); Monocytes # 0.6 K/mm3 (0.1-1.0); Monocytes % 6.7 % (1.7-9.3); Neutrophils # 5.9 K/mm3 (1.8-7.8); Neutrophils % 71.6 % (37.0-80.0); Platelet Count 423 K/mm3 (142-424); White Blood Count 8.3 K/mm3 (4.8-10.8)
[2022-07-24 12:33] LABS: Red Cell Distribution Width 28.6 % (11.5-17.5)
[2022-07-24 19:32] LABS: Ferritin 30.4 ng/ml (6.24-137)
== END ==
PROVIDERS: PCP Nurse Practitioner Family; Visit Provider Nurse Practitioner Family
DX: D50.8 Other iron deficiency anemias (principal)
CPT/HCPCS: 36415; 82728; 85025

== ENCOUNTER → 2022-09-18 12:43 | Outpatient (CLI) | payer BC, SELFPAY ==
[2022-09-18 13:02] LABS: Basophils % 0.3 % (0.1-2.0); Eosinophils # 0.2 K/mm3 (0.0-0.4); Eosinophils % 1.8 % (0.1-12.0); Hemoglobin 13.7 g/dL (12.2-16.2); Lymphocytes # 1.7 K/mm3 (0.7-4.5); Lymphocytes % 13.6 % (10-50); Mean Corpuscular HGB Conc 31.2 g/dL (31.8-35.4); Mean Corpuscular Hemoglobin 28.5 pg (27.0-31.2); Mean Corpuscular Volume 91.5 fl (81-99); Mean Platelet Volume 7.4 fl (7.4-10.4); Monocytes # 0.7 K/mm3 (0.1-1.0); Monocytes % 5.8 % (1.7-9.3); Neutrophils # 9.6 K/mm3 (1.8-7.8); Neutrophils % 78.5 % (37.0-80.0); Platelet Count 419 K/mm3 (142-424); Red Blood Count 4.81 M/mm3 (4.20-5.40); Red Cell Distribution Width 19.9 % (11.5-17.5); White Blood Count 12.2 K/mm3 (4.8-10.8)
== END ==
PROVIDERS: PCP Nurse Practitioner Family; Visit Provider Nurse Practitioner Family
DX: D50.8 Other iron deficiency anemias (principal)
CPT/HCPCS: 36415; 85025

== ENCOUNTER → 2022-09-23 13:22 | Outpatient (CLI) | payer BC, SELFPAY ==
[2022-09-23 17:03] LABS: Iron 69 ug/dL (37-170)
[2022-09-23 17:12] LABS: Total Iron Binding Capacity 462 ug/dL (265-497)
[2022-09-23 17:40] LABS: Ferritin 6.51 ng/ml (6.24-137)
== END ==
PROVIDERS: PCP Nurse Practitioner Family; Visit Provider Nurse Practitioner Family
DX: D64.9 Anemia, unspecified (principal); D75.839 Thrombocytosis, unspecified
CPT/HCPCS: 36415; 82728; 83540; 83550

== ENCOUNTER → 2022-10-28 10:39 | Outpatient (CLI) | payer BC, SELFPAY ==
[2022-10-28 11:50] LABS: Iron 72 ug/dL (37-170)
[2022-10-28 11:59] LABS: Total Iron Binding Capacity 390 ug/dL (265-497)
[2022-10-28 12:26] LABS: Ferritin 7.12 ng/ml (6.24-137)
[2022-10-31 11:20] LABS: Antinuclear Antibodies (ANA) Negative
== END ==
PROVIDERS: PCP Internal Medicine; Visit Provider Internal Medicine
DX: D50.9 Iron deficiency anemia, unspecified (principal); M25.541 Pain in joints of right hand
CPT/HCPCS: 36415; 82728; 83540; 83550; 86038

== ENCOUNTER → 2022-10-29 16:31 | Outpatient (CLI) | payer BC, SELFPAY ==
--- NOTE | 2022-10-29 | CA_ITS ---
FINAL REPORT TECHNIQUE: Graded compression, spectral analysis and ultrasound images of the venous system of the right upper extremity were obtained. CLINICAL HISTORY: right arm intermittent swelling > 1year COMPARISON: None FINDINGS: The jugular vein, subclavian vein, axillary vein, brachial vein, cephalic vein and basilic venous system are fully compressible and demonstrate no evidence of thrombosis. IMPRESSION: No evidence of thrombosis of the venous system of the right upper extremity. Reviewed, Interpreted and Dictated by Isrrael Prasad MD Transcribed by Geno Smith Authenticated and [facility]
== END ==
PROVIDERS: PCP Internal Medicine; Visit Provider Internal Medicine
DX: M79.601 Pain in right arm (principal); M79.89 Other specified soft tissue disorders
CPT/HCPCS: 93971

== ENCOUNTER 2022-12-25 08:00 | Outpatient (RCR) | payer BC, SELFPAY ==
--- NOTE | 2022-11-20 14:13 | HMH.PTOPWND ---
Rehab Outpt Wound Evaluation Rehab OP Wound Evaluation Start: 11/20/22 13:38 Freq: Status: Active Protocol: Document 11/20/22 13:58 ERICKA (Rec: 11/20/22 14:13 PHORSHUKRI [id number]) E-signed By Arian Kay, PT Subjective/History History History This is the initial PT eval for Matilde Mustafa, 31 yowf who presents with c/o R UE swelling x ~ 1 yr with insidious onset of symptoms. She reports no known trauma or underlying diagnosis that would result in this type of edema. She does report intermittent pain throughout the R UE, but worse in the hand. She also reports intermittent nubness and tingling in the R hand. She reports hx of gastric sleeve, anemia, CCY, B papilledema. LLIS= 11 Subjective Subjective Current pain 2/10, at worst 6/ 10. No TTP noted this date. No pitting edema noted. Mild fibrotic edema noted throughout R UE. Possible late-onset primary lymphedema vs secondary lymphedema of unknown cause. New diagnosis of cancer in past 12 No months? Lymphedema Eval Stemmer's sign Stemmer's Sign no Stage of Lymphedema Lymphedema stages Stage 0 (subjective c/o heaviness and aching) Skin Changes Dry Skin Yes Skin Folds Yes Pain Scale Pain Scale (0-10) 6 Radiation Therapy Has received radiation therapy no Chemo Therapy Has received chemo therapy no Affected Extremities Areas Affected by Lymphedema/Edema Right Upper Extremity Upper Extremity Measurements Right MCP Measurement (cm) 20.2 Web Space Measurement (cm) 21.2 Ulnar Styloid Process Measurement (cm) 16.7 10 cm Proximal to Ulnar Styloid 24.4 Measurement (cm) 20 cm Proximal to Ulnar Styloid 27.5 Measurement (cm) 30 cm Proximal to Ulnar Styloid 28.9 Measurement (cm) 40 cm Proximal to Ulnar Styloid 36.8 Measurement (cm) 50 cm Proximal to Ulnar Styloid 40.2 Measurement (cm) Upper Extremity Measurement Total (cm) 215.9 Left MCP Measurement (cm) 19.0 Web Space Measurement (cm) 20.5 Ulnar Styloid Process Measurement (cm) 16.3 10 cm Proximal to Ulnar Styloid 23.3 Measurement (cm) 20 cm Proximal to Ulnar Styloid 26.7 Measurement (cm) 30 cm Proximal to Ulnar Styloid 28.0 Measurement (cm) 40 cm Proximal to Ulnar Styloid 34.3 Measurement (cm) 50 cm Proximal to Ulnar Styloid 39.0 Measurement (cm) Upper Extremity Measurement Total (cm) 207.1 Manual Lymphatic Drainage Treatment Area MLD Treatment Area Right Upper Extremity,Right Axilla Wound Problems/Impairments Impairments Problems/Impairmments Impaired Household Care, Impaired Recreational Activities,Increased Edema, Lymphedema Present,Subjective C/O Pain,Impaired Self Care/ Self Management Prognosis Rehab Potential Good Clinical Impression Consistent with Diagnosis Yes Short Term Goals Number of Weeks 2 Decrease Subjective C/O Pain Yes: 4/10 at worst Patient to Understand Lymphedema Yes Treatment and Exercises Decrease Girth Measurments by (cm) Yes: R UE by 5 cm total Assisted Goals Number of Weeks 4 Decrease Lymphedema Yes: No fibrotic edema Decrease Subjective C/O Pain Yes: 2/10 at worst Patient to be Ind w/ HEP Yes Patient to be Ind w/ [place] Yes Compression Garments Patient to Adhere Lymphedema Precautions Yes Decrease Girth Measurments by (cm) Yes: R UE by 15 cm total Outpatient Therapy Plan of Care Treatment Plan May Include Therapeutic Exercise Including Home Yes Exercise Program Manual Therapy Techniques Yes Neuromuscular Re-education Yes ADL/Self Care Education Yes Orthotics/Bracing/Splinting Yes Vasopneumatic Compression Pump Yes Manual Lymphatic Drainage Yes Eval/Re-Eval Yes Frequency Times per week 2 Duration Number of Weeks 4 Addendums This patient is a candidate for social No or vocational rehab? Patient/Guardian verbally acknowledges Yes understanding of treatment program and consents to further treatment? Patient/Guardian verbally acknowledges Yes understanding of diagnosis, prognosis and goals for treatment? Eval Complexity PT Charges 76876 - High Complexity PHYSICIAN CERTIFICATION: I certify the specified therapy services for Matilde Mustafa are required, authorized, and reviewed every 30 days.
--- NOTE | 2022-12-18 10:54 | HMH.RHREAS ---
Rehab Reassessment Rehab OP Re-assessment Start: 11/20/22 13:38 Freq: Status: Active Protocol: Document 12/18/22 10:45 ERICKA (Rec: 12/18/22 10:52 PHOYASIR [id number]) E-signed By Arian Kay, PT Rehab Re-assessment Subjective Subjective Pt reports, I'm not having anywhere near the pain in my arm and hand that I was. My hand is a little more puffy this morning than it has been. Objective Objective Notes Pain at worst: 3/10 in R hand. Circumferential Measurements: R UE total 216.3 cm which is + 0.4 cm since initial evaluation. Assessment Progress Assessment Progressing as Expected Assessment Notes Pt has shown significant reduction in R UE pain, however she has made only minimal progress with overall edema. She continues to need skilled intervention to return to prior level of function. Patient goals met ST,[address] LT,2,3,4,5,6 Plan Plan Continue per initial POC. Frequency of Therapy 2 x/wk Duration of therapy 4 ws Time and Billing Re-Eval Time 13 Re-Eval Billing Units 1 PHYSICIAN CERTIFICATION: I certify the specified therapy services for Matilde Mustafa are required, authorized, and reviewed every 30 days.
== END 2022-12-25 09:00 | disposition home or self-care (01) ==
LOC: PT 08:00
PROVIDERS: PCP Internal Medicine; Visit Provider Internal Medicine
DX: M79.601 Pain in right arm (principal); M79.89 Other specified soft tissue disorders
CPT/HCPCS: 97140; 97163; 97164

== ENCOUNTER → 2023-01-09 23:57 | Outpatient (CLI) | payer BC, SELFPAY ==
[2023-01-09 14:40] LABS: Adenovirus,PCR Not Detected (NotDetected); Coronavirus 19, PCR Not Detected (NotDetected); Coronavirus 229E Not Detected (NotDetected); Coronavirus NL63 Not Detected (NotDetected); Coronavirus OC43 Not Detected (NotDetected); Coronovirus HKU1,PCR Not Detected (NotDetected); Human Metapneumovirus Not Detected (NotDetected); Influenza A, PCR Not Detected (NotDetected); Influenza AH1, 2009 Not Detected (NotDetected); Influenza AH1, PCR Not Detected (NotDetected); Influenza AH3,PCR Not Detected (NotDetected); Parainfluenza 1, PCR Not Detected (NotDetected); Parainfluenza 2, PCR Not Detected (NotDetected); Parainfluenza 3, PCR Not Detected (NotDetected); Parainfluenza 4, PCR Not Detected (NotDetected); Respiratory Syncytial Virus Not Detected (NotDetected); Rhinovirus/Enterovirus Not Detected (NotDetected)
[2023-01-09 21:08] LABS: Influenza B, PCR Detected (NotDetected)
== END ==
PROVIDERS: PCP Internal Medicine; Visit Provider Internal Medicine
DX: J01.90 Acute sinusitis, unspecified (principal); J02.9 Acute pharyngitis, unspecified; J10.1 Influenza due to other identified influenza virus with other respiratory manifestations
CPT/HCPCS: 87070; 87632; 87635

== ENCOUNTER → 2023-01-21 13:34 | Outpatient (CLI) | payer BC, SELFPAY ==
[2023-01-21 14:29] LABS: Basophils % 0.4 % (0.1-2.0); Eosinophils # 0.2 K/mm3 (0.0-0.4); Eosinophils % 1.5 % (0.1-12.0); Hematocrit 39.7 % (37.0-47.0); Hemoglobin 12.7 g/dL (12.2-16.2); Lymphocytes % 19.1 % (10-50); Mean Corpuscular HGB Conc 32.1 g/dL (31.8-35.4); Mean Corpuscular Hemoglobin 29.5 pg (27.0-31.2); Mean Corpuscular Volume 91.9 fl (81-99); Mean Platelet Volume 8.1 fl (7.4-10.4); Monocytes # 0.7 K/mm3 (0.1-1.0); Monocytes % 6.9 % (1.7-9.3); Neutrophils # 7.6 K/mm3 (1.8-7.8); Neutrophils % 72.2 % (37.0-80.0); Platelet Count 676 K/mm3 (142-424); Red Blood Count 4.32 M/mm3 (4.20-5.40); Red Cell Distribution Width 14.7 % (11.5-17.5); White Blood Count 10.5 K/mm3 (4.8-10.8)
[2023-01-21 15:01] LABS: Iron 46 ug/dL (37-170)
[2023-01-21 15:10] LABS: Total Iron Binding Capacity 397 ug/dL (265-497)
[2023-01-21 15:36] LABS: Ferritin 13.5 ng/ml (6.24-137)
== END ==
PROVIDERS: PCP Internal Medicine; Visit Provider Internal Medicine
DX: D50.9 Iron deficiency anemia, unspecified (principal)
CPT/HCPCS: 36415; 82728; 83540; 83550; 85025

== ENCOUNTER 2023-06-11 14:56 | Outpatient (CLI) | payer BC, SELFPAY ==
[2023-06-11 15:29] LABS: Basophils # 0.1 K/mm3 (0-0.2); Basophils % 0.8 % (0.1-2.0); Eosinophils # 0.2 K/mm3 (0.0-0.4); Eosinophils % 2.3 % (0.1-12.0); Hematocrit 46.2 % (37.0-47.0); Hemoglobin 14.1 g/dL (12.2-16.2); Lymphocytes # 2.3 K/mm3 (0.7-4.5); Lymphocytes % 23.1 % (10-50); Mean Corpuscular HGB Conc 30.6 g/dL (31.8-35.4); Mean Corpuscular Volume 91.4 fl (81-99); Mean Platelet Volume 7.5 fl (7.4-10.4); Monocytes # 0.5 K/mm3 (0.1-1.0); Monocytes % 5.3 % (1.7-9.3); Neutrophils # 6.7 K/mm3 (1.8-7.8); Neutrophils % 68.4 % (37.0-80.0); Platelet Count 477 K/mm3 (142-424); Red Blood Count 5.05 M/mm3 (4.20-5.40); Red Cell Distribution Width 15.3 % (11.5-17.5); White Blood Count 9.9 K/mm3 (4.8-10.8)
[2023-06-11 15:36] LABS: Iron 54 ug/dL (37-170)
[2023-06-11 15:45] LABS: Total Iron Binding Capacity 449 ug/dL (265-497)
[2023-06-11 16:12] LABS: Ferritin 5.06 ng/ml (6.24-137)
== END 2023-06-11 23:59 | disposition home or self-care (01) ==
LOC: LAB 14:57
PROVIDERS: PCP Internal Medicine; Visit Provider Internal Medicine
DX: D50.8 Other iron deficiency anemias (principal)
CPT/HCPCS: 36415; 82728; 83540; 83550; 85025

== ENCOUNTER 2024-01-02 10:48 | Outpatient (CLI) | payer BC, SELFPAY ==
[2024-01-02 11:36] LABS: Basophils % 0.4 % (0.1-2.0); Eosinophils # 0.2 K/mm3 (0.0-0.4); Eosinophils % 2.5 % (0.1-12.0); Hematocrit 39.2 % (37.0-47.0); Hemoglobin 12.7 g/dL (12.2-16.2); Lymphocytes % 22.8 % (10-50); Mean Corpuscular HGB Conc 32.4 g/dL (31.8-35.4); Mean Corpuscular Hemoglobin 28.2 pg (27.0-31.2); Mean Platelet Volume 7.3 fl (7.4-10.4); Monocytes # 0.5 K/mm3 (0.1-1.0); Monocytes % 5.6 % (1.7-9.3); Neutrophils # 6.1 K/mm3 (1.8-7.8); Neutrophils % 68.6 % (37.0-80.0); Platelet Count 401 K/mm3 (142-424); Red Blood Count 4.51 M/mm3 (4.20-5.40); Red Cell Distribution Width 15.9 % (11.5-17.5); White Blood Count 8.8 K/mm3 (4.8-10.8)
[2024-01-02 12:01] LABS: Iron 53 ug/dL (37-170)
[2024-01-02 12:12] LABS: Total Iron Binding Capacity 439 ug/dL (265-497)
[2024-01-02 12:37] LABS: Ferritin 4.46 ng/ml (6.24-137)
== END 2024-01-02 23:59 | disposition home or self-care (01) ==
LOC: LAB 10:49
PROVIDERS: PCP Internal Medicine; Visit Provider Internal Medicine
DX: D50.8 Other iron deficiency anemias (principal)
CPT/HCPCS: 36415; 82728; 83540; 83550; 85025

== ENCOUNTER 2024-01-08 15:54 | Emergency (ER) | payer BC, SELFPAY ==
[2024-01-08 15:56] VITALS: BP 130/70; PULSE 93; RESP 18; TEMP 36.9; O2SAT 100; BMI 38.0
[2024-01-08 16:01] VITALS: BP 130/70; PULSE 99; O2SAT 100
--- NOTE | 2024-01-08 16:05 | PC.NURSE ---
DR CHAVEZ AT BEDSIDE
--- NOTE | 2024-01-08 16:10 | XR_ITS ---
PROCEDURE INFORMATION: Exam: XR Right Hand Exam date and time: 01/08/2024 4:13 PM Age: 33 years old Clinical indication: Pain; Hand; Right; Additional info: Right 2nd mcp swelling and redness TECHNIQUE: Imaging protocol: Radiologic exam of the right hand. Views: 3 or more views. Total images: 3 COMPARISON: No relevant prior studies available. FINDINGS: Bones/joints: No evidence of acute fracture or dislocation. Soft tissues: Soft tissue swelling is present. IMPRESSION: 1. Soft tissue swelling is present. 2. No evidence of acute fracture or dislocation.
[2024-01-08] MEDS: KETOROLAC 30MG/ML VIAL 15 MG IV (16:16)
--- NOTE | 2024-01-08 16:32 | ED_ITS ---
Discharge Plan Disposition Patient Disposition: Home, Self-Care Condition: Good Prescriptions Prescriptions: No Action Nexplanon 68 mg implant subdermal acetazolamide 250 mg tablet 750 mg PO BID 30 Days Qty: 180 3RF sertraline 100 mg tablet See Rx Instructions .ROUTE .COMPLEX Qty: 90 3RF Dose Instruction: TAKE 1 TABLET BY MOUTH ONCE DAILY FOR MOOD Rx Instructions: TAKE 1 TABLET BY MOUTH ONCE DAILY FOR MOOD omeprazole 40 mg capsule,delayed release(DR/EC) 40 mg PO DAILY Qty: 90 1RF Ubrelvy 100 mg tablet 100 mg PO ONCE Qty: 10 11RF Rx Instructions: 1 tablet at onset of symptoms. May repeat in 2 hours if symptoms persist. Max 2/day, Max 4/week Emgality Pen 120 mg/mL pen injector 120 mg SQ QMONTH Qty: 1 11RF Rx Instructions: Inject monthly as prescribed. metformin 500 mg tablet See Rx Instructions .ROUTE .COMPLEX Qty: 90 0RF Dose Instruction: TAKE 1 TABLET BY MOUTH ONCE DAILY FOR DIABETES Rx Instructions: TAKE 1 TABLET BY MOUTH ONCE DAILY FOR DIABETES Referrals Follow up/Referrals: Yared Catalan DO [Primary Care Provider] - See instructions Activity Restrictions/Add. Instructions Additional Instructions/Restrictions: Transferred to [facility] ER care of Dr. Fernandez for hand evaluation POV Clinical Impressions Clinical Impression: Lymphangitis, Cellulitis Stand Alone Forms Stand Alone Forms: Transfer Record - ED Print Language Print Language: Azeri Discharge ED Provider: Kit Hernandez General Adult HPI General Chief complaint: Skin/Abscess/Foreign Body Stated complaint: Right arm painful and swollen,red Time Seen by Provider: 01/08/24 16:02 Mode of Arrival: Ambulatory Source of Information: Patient Limitations: No Limitations Description of Symptoms (Recalled from ER Triage Doc. by RN): PT REPORTS LOCAL REACTION TO TOPICAL CREAM TO RIGHT HOND 2 DAYS AGO. PAIN TO JOINTS OF HAND AND RADIATES UP ARM. REPORTS PAIN, REDNESS AND SWELLING. History of Present Illness HPI narrative: Please note that above description of symptoms, in this electronic medical record under categorization of recalled from ER triage doctor by RN are reflective of an initial nursing assessment, however, is not reflective of my full history and physical exam that was personally taken and clarified. Consequentially, this preceding description of symptoms, which may include the patient's categorized chief complaint in the EMR, do not reflect my personal clinical impression, and the ultimate description of history of present illness and patient stated complaints should be deferred to this section of the note. Unless stated otherwise or congruent with this section of the note, additional signs, symptoms, or incongruence should be interpreted as inaccurate with my clinical impression. Related Data Home Medications ?Medication ?Instructions ?Recorded ?Confirmed etonogestrel 68 mg subdermal subdermal 08/25/23 10/28/23 implant (Nexplanon) Previous Rx's ?Medication ?Instructions ?Recorded sertraline 100 mg tablet See Rx Instructions .Route 05/12/23 .COMPLEX #90 tabs omeprazole 40 mg capsule,delayed 40 mg PO DAILY acid reflux #90 caps 08/07/23 release acetazolamide 250 mg tablet 750 mg (3 x 250 mg) PO BID Benign 10/28/23 intracranial HTN 30 days #180 tabs galcanezumab-gnlm 120 mg/mL 120 mg SQ QMONTH Migraine Headache 12/02/23 subcutaneous pen injector #1 mL (Emgality Pen) ubrogepant 100 mg tablet (Ubrelvy) 100 mg PO ONCE Migraine Headache 12/02/23 #10 tabs metformin 500 mg tablet See Rx Instructions .Route 01/02/24 .COMPLEX #90 tabs Allergies Allergy/AdvReac Type Severity Reaction Status Date / Time clarithromycin Allergy Intermediate Hives Verified 09/22/23 07:31 peanut Allergy Mild Anaphylaxis Verified 09/22/23 07:31 sucralfate [From Carafate] Allergy Mild hives Verified 09/22/23 07:31 PFSH PFSH Disclaimer: The information contained in this section may have been updated after the patient was seen, as this information can be updated by other users. Medical History (Updated 01/08/24 @ 19:39 by Kit Hernandez MD) Benign intracranial hypertension Papilledema associated with increased intracranial pressure Polycystic ovarian syndrome Migraine headache Surgical History History of gastric restrictive surgery History of cholecystectomy Family History Other No significant family history Social History Smoking Status: Never smoker alcohol intake: current alcohol intake frequency: holidays/special occasions only substance use type: denies use current occupational status: employed Travel in the last 8 weeks: None household members: family and children housing: house caffeine: No Other Medical History Have you received the Flu Vaccine for this season: No Have you received the Pneumonia Vaccine: No ROS Obtained: Yes All systems reviewed & no additional complaints except as documented Physical Exam General General appearance: alert and anxious Head Head exam: atraumatic and normocephalic Eye Eye exam: Present normal appearance, PERRL and EOMI Neck Neck exam: Present normal inspection, full ROM and trachea midline Respiratory Respiratory exam: Absent respiratory distress, wheezes, stridor, accessory muscle use or prolonged expiratory phase Cardiovascular Cardiovascular exam: Present other (Pulses equal symmetric in upper and lower extremities) Abdominal Exam Abdominal exam: Present soft; Absent distention, tenderness or pulsatile mass Extremities Exam Extremities exam: Present other (Per MDM) Neurological Exam Neurological exam: Present alert, oriented X3 and CN II-XII intact; Absent motor sensory deficit Skin Skin exam: Present warm and dry; Absent diaphoresis or erythema Medical Decision Making Medical Records Medical records reviewed: Yes I reviewed the patient's medical records. Screening: Per USPSTF and CDC recommendations, given the prevalence of disease in our region, it is our hospital?s policy to screen for HIV and viral Hepatitis for all patients aged 18 and over and those with ongoing risk factors. Jelani Inquiry Pt receiving controlled substance: No Jelani was queried for this patient: No Vital Signs: 01/08/24 15:56 01/08/24 16:01 01/08/24 17:00 Temperature 98.4 F Temperature Source Oral Pulse Rate 99 H 88 Pulse Rate [Radial] 93 H Respiratory Rate 18 Blood Pressure 130/70 121/79 Blood Pressure [Left Arm] 130/70 Blood Pressure Mean [Left Arm] 90 Blood Pressure Source Blood Pressure Source [Left Arm] Automatic Cuff Blood Pressure Position Blood Pressure Position [Left Arm] Sitting 02 Sat by Pulse Oximetry 100 100 96 Oxygen Delivery Method Room Air 01/08/24 18:47 Temperature 98.4 F Temperature Source Oral Pulse Rate 88 Pulse Rate [Radial] Respiratory Rate 18 Blood Pressure 110/69 Blood Pressure [Left Arm] Blood Pressure Mean [Left Arm] Blood Pressure Source Automatic Cuff Blood Pressure Source [Left Arm] Blood Pressure Position Sitting Blood Pressure Position [Left Arm] 02 Sat by Pulse Oximetry Oxygen Delivery Method Room Air Lab Data Lab Results 01/08/24 16:20: WBC 16.3 H, RBC 4.81, Hgb 13.1, Hct 40.9, MCV 85.1, MCH 27.2, MCHC 32.0, RDW 16.1, Plt Count 469 H, MPV 7.3 L, Neut % (Auto) 84.9 H, Lymph % (Auto) 7.9 L, Eagle % (Auto) 4.8, Eos % (Auto) 2.1, Baso % (Auto) 0.4, Neut # (Auto) 13.8 H, Lymph # (Auto) 1.3, Eagle # (Auto) 0.8, Eos # (Auto) 0.4, Baso # (Auto) 0.1, Total Counted 100, Neutrophils % (Manual) 84 H, Band Neutrophils % 2.0, Lymphocytes % (Manual) 8 L, Monocytes % (Manual) 5, Basophils % (Manual) 1.0, Platelet Estimate Slight increase, RBC Morphology Normal, ESR 24 H, Sodium 140, Potassium 3.7, Chloride 110 H, Carbon Dioxide 20 L, Anion Gap 13.7, BUN 7, Creatinine 0.90, Estimated Creat Clear 161, Estimated GFR 73, Est GFR ( Amer) 88, Glucose 99, Lactate 1.0, Calcium 8.9, Total Bilirubin 0.6, AST 23, ALT 18, Alkaline Phosphatase 89, C-Reactive Protein 52.1 H, Total Protein 7.8, Albumin 4.4, Globulin 3.4 H, Albumin/Globulin Ratio 1.3, HIV 1&2 Antibody Rapid Nonreactive 01/08/24 16:20 01/08/24 16:20 Orders (Tests/Meds): ED MEDICATIONS Discontinued Medications Generic Name Dose Route Start Last Admin Trade Name German PRN Reason Stop Dose Admin Cephalexin HCl 1,000 mg 01/08/24 16:35 01/08/24 16:47 Cephalexin 500mg Capsule PO 01/08/24 16:36 1,000 mg ONCE ONE Administration Ketorolac Tromethamine 15 mg 01/08/24 16:12 01/08/24 16:16 Ketorolac 30mg/Ml Vial IV 01/08/24 16:13 15 mg ONCE ONE Administration Trimethoprim/Sulfamethoxazole 1 each 01/08/24 16:35 01/08/24 16:48 Sulfa/Trimethoprim 1 Tablet PO 01/08/24 16:36 1 each ONCE ONE Administration ORDERS Category Date Time Status Hand XR right minimum 3 views [XR hand RT min 3V] Stat Exams 01/08/24 16:10 Completed POCUS Point of Care (ER Only) Stat Exams 01/08/24 16:10 Completed CBC w/Auto Diff [Complete Blood Count Auto Diff] Stat Lab 01/08/24 16:20 Completed CMP [Comprehensive Metabolic Panel] Stat Lab 01/08/24 16:20 Completed CRP [C-Reactive Protein] Stat Lab 01/08/24 16:20 Completed ESR [Erythrocyte Sedimentation Rate] Stat Lab 01/08/24 16:20 Completed HIV (1&2) Antibody Rapid Stat Lab 01/08/24 16:20 Completed Hep C Ab with Reflex to RNA Stat Lab 01/08/24 16:20 Received Lactic Acid Stat Lab 01/08/24 16:20 Completed Blood Culture Stat Micro 01/08/24 16:30 Received Medical Decision Narrative: 33-year-old female history of obesity type 2 diabetes, right upper extremity lymphedema (idiopathic) presenting with right upper extremity redness, swelling and warmth. Patient states that she put lotion on the dorsum of her right hand last night, 01/06. Throughout today, she started noticing that her hand was red, puffy, tender at her second and third digits. Family member is , called to discussed with him. On his evaluation, patient had erythema and swelling of second and third MCPs with streaking up the palm and ventral aspect of right upper extremity. Also has tenderness into her right axilla. Given history of current impression of lymphangitis in the setting of lymphedema, patient came to the emergency department for further evaluation. Patient states that she is having moderate pain in her axilla and moderate pain in the dorsum of her wrist. Regarding the joints on her hand, she states that they are stiff, but not incredibly painful and range of motion is not limited to pain. Edematous and erythematous and warm lymphatic vessel streaking up the arm into the axilla. History was obtained via conversation with patient and family. On arrival, patient hemodynamically stable, alert, oriented x4, appropriate, GCS 15, moving all extremities spontaneously, pupils equal and reactive to light. Full physical exam performed and significant for uncomfortable appearing female who is in no acute distress. She does appear anxious. Tenderness up in her axilla, but no obvious large palpable lymph nodes. Lymphatic vessel streaking from MCP of second and third digit of the right hand on the palmar aspect up ventral aspect of right upper extremity nearing the axilla. Tender, warm. No palpable cord. differential includes lymphangitis, DVT, cellulitis, septic joint, flexor tenosynovitis, among others. Patient placed on continuous cardiac monitoring and continuous pulse ox with initial blood pressure 130/70, heart rate 93, saturation 100% on room air. Patient was given Toradol, Bactrim and Keflex for symptomatic management and correction of underlying abnormalities. Workup independently interpreted and significant for leukocytosis 16,000 with neutrophilia. ESR elevated at 24. Chemistry overall normal, CRP elevated at 52.. On independent interpretation of imaging, no acute bony abnormality. See radiology read for full review of final results. Soft tissue swelling around the joint prompted [id number] ultrasound at bedside. On independent interpretation of [id number] ultrasound, patient had no evidence of large joint effusion, no evidence of flexor tendon fluid. There was soft tissue edema, no evidence of abscess. No evidence of DVT on right upper extremity DVT ultrasound. Out of abundance of caution, hand surgery [facility] was contacted and case was discussed. Recommended transfer out of abundance of caution given spontaneous and atraumatic joint swelling. Because patient high risk for clinical decompensation if discharged, deemed appropriate for transfer and inpatient admission. Results were relayed to patient who voiced understanding and patient was agreeable to transfer, inpatient admission, and management. Patient was graciously accepted and transferred to [facility] for further definitive management, under Dr. Fernandez. Fitness Technician disclaimer Much of this encounter note is an electronic clinical assistant professor spoken language to printed text. Electronic clinical assistant professor of the spoken language may permit errors. Although I have reviewed the note, some errors may still exist. Procedures Limited Ultrasound Indication:: Limited soft tissue ultrasound Indication: Soft tissue swelling, joint pain Identified structures: Location: Right palm and second digit Findings: Soft tissue swelling without evidence of large joint effusion. No evidence of flexor tendon sheath edema Impression: Soft tissue edema without other obvious acute abnormality Images were saved to permanent archive The study was technically adequate Soft Tissue CPT Codes: CPT Neck: 04634-55 CPT Upper extremity: 14234-99 CPT Axilla: 36688-56 CPT Chest wall: 45447-09 CPT Breast: 14958-03-AM/LT (complete), 62200-04-AY/LT (limited), CPT Upper Back: 13701-74 CPT Lower Back: 98231-98 CPT Abdominal Wall: 75839-41 CPT Pelvic Wall: 95583-10 CPT Lower Extremity: 16318-95 CPT Other Soft Tissue: 07684-37 This study was performed by me, and I personally interpreted all images/videos. Based on my clinical judgement, these images were adequate and did not necessitate further imaging. Views:: Limited DVT ultrasound Indication: Limited compression ultrasonography of the right upper extremity was performed to evaluate for non-compressibility of the deep veins in the patient. The ultrasound was performed with the following indications, as noted in the H&P: Red streaking up the arm Identified structures: RIGHT or LEFT or BILATERAL ulnar vein, radial vein, cephalic vein, basilic vein, axillary vein. Findings: Upper extremity: Right UV good compressibility or Non-compressible or Not performed Right RV: Good compressibility or Non-compressible or Not performed Right Cephalic vein: Good compressibility or Non-compressible or Not performed Right Basilic vein: Good compressibility or Non-compressible or Not performed Right Axillary vein: Good compressibility or Non-compressible or Not performed Impression: Normal right upper extremity DVT ultrasound without evidence of DVT Images were saved to permanent archive The study was technically adequate CPT: 35109-52-BY 21814-73-VS 68936-05 (complete bilateral study) This study was performed by me, and I personally interpreted all images/videos. Based on my clinical judgement, these images were adequate and did not necessitate further imaging Critical Care Critical Care Time Critical Care Time: No
[2024-01-08] MEDS: cephALEXin 500MG CAPSULE 1000 MG PO (16:47)
[2024-01-08 16:48] LABS: Basophils # 0.1 K/mm3 (0-0.2); Basophils % 0.4 % (0.1-2.0); Eosinophils # 0.4 K/mm3 (0.0-0.4); Eosinophils % 2.1 % (0.1-12.0); Hematocrit 40.9 % (37.0-47.0); Hemoglobin 13.1 g/dL (12.2-16.2); Lymphocytes # 1.3 K/mm3 (0.7-4.5); Lymphocytes % 7.9 % (10-50); Mean Corpuscular Hemoglobin 27.2 pg (27.0-31.2); Mean Corpuscular Volume 85.1 fl (81-99); Mean Platelet Volume 7.3 fl (7.4-10.4); Monocytes # 0.8 K/mm3 (0.1-1.0); Monocytes % 4.8 % (1.7-9.3); Neutrophils # 13.8 K/mm3 (1.8-7.8); Neutrophils % 84.9 % (37.0-80.0); Platelet Count 469 K/mm3 (142-424); Red Blood Count 4.81 M/mm3 (4.20-5.40); Red Cell Distribution Width 16.1 % (11.5-17.5); White Blood Count 16.3 K/mm3 (4.8-10.8)
[2024-01-08] MEDS: SULFA/TRIMETHOPRIM 1 TABLET 1 EACH PO (16:48)
[2024-01-08 16:49] LABS: Chloride 110 mmol/L (98-107); MANUAL DIFFERENTIAL MANUAL DIFFERENTIAL (MANUAL DIFF)
[2024-01-08 16:50] LABS: Albumin Level 4.4 g/dl (3.5-5.0); Potassium 3.7 mmoL/L (3.5-5.1); Sodium 140 mmol/L (136-145)
[2024-01-08 16:52] LABS: Alanine Aminotransferase 18 U/L (12-78); Blood Urea Nitrogen 7 mg/dl (7-17); Creatinine Clearance Estimated 161 mL/min (50-200); Estimated Glomerular Filt Rate 73 ml/min (>60); GFR (African American) 88 ML/MIN (>60)
[2024-01-08 16:53] LABS: Albumin/Globulin Ratio 1.3 (1.1-1.8); Alkaline Phosphatase 89 U/L (38-126); Anion Gap 13.7 mEq/L (5-15); Aspartate Amino Transferase 23 U/L (14-36); Bilirubin,Total 0.6 mg/dl (0.2-1.3); Calcium 8.9 mg/dl (8.4-10.2); Carbon Dioxide 20 mmol/L (22.0-30.0); Globulin 3.4 g/dL (1.3-3.2); Glucose 99 mg/dl (74-100); Total Protein,Serum 7.8 g/dl (6.3-8.2)
[2024-01-08 16:59] LABS: C-Reactive Protein 52.1 mg/L (0-4)
[2024-01-08 17:00] VITALS: BP 121/79; PULSE 88; O2SAT 96
--- NOTE | 2024-01-08 17:41 | PC.NURSE ---
Called [facility] per Dr. Hernandez for a hand consult. Dr. Hernandez is on the phone with at this time.
[2024-01-08 18:06] LABS: Lymphocytes % 8 % (10-50); Monocytes % 5 % (2-9); Neutrophils % 84 % (42-76); Total Cells Counted 100
[2024-01-08 18:07] LABS: Platelet Estimate Slight Increase; RBC Morphology Normal
[2024-01-08 18:14] LABS: Erythrocyte Sedimentation Rate 24 mm/hr (0-20)
[2024-01-08 18:47] VITALS: BP 110/69; PULSE 88; RESP 18; TEMP 36.9; O2SAT 99
[2024-01-08 19:02] LABS: HIV (1&2) Antibody Rapid NONREACTIVE (NONREACTIVE)
[2024-01-10 08:22] LABS: HCV Ab Non Reactive (Non Reactive)
== END 2024-01-08 18:48 | disposition home or self-care (01) ==
PROVIDERS: Emergency Provider Emergency Medicine; PCP Internal Medicine
DX: I89.1 Lymphangitis (principal)
CPT/HCPCS: 73130; 80053; 83605; 85007; 85025; 85027; 85651; 86140; 86803; 87040; 87389; 96374; 99285; J1885

== ENCOUNTER 2024-02-02 11:10 | Outpatient (CLI) | payer BC, SELFPAY ==
[2024-02-02 11:55] VITALS: BP 118/83; PULSE 61; RESP 18; O2SAT 99
[2024-02-02] MEDS: IRON SUCROSE COMPLEX 200 MG in 0.9 % SODIUM CHLORIDE 100 ML 220 MG IV (11:55)
[2024-02-02] MEDS: SODIUM CHLORIDE 0.9% 50ML BAG 50 ML IV (11:57)
[2024-02-02] MEDS: SODIUM CHLORIDE 0.9% 10ML FLUSH SYRINGE 10 ML IV (11:57)
[2024-02-02 12:30] VITALS: BP 114/65; PULSE 61; RESP 18; O2SAT 99
== END 2024-02-02 12:30 | disposition home or self-care (01) ==
LOC: INF 11:11
PROVIDERS: PCP Internal Medicine; Visit Provider Internal Medicine
DX: D50.9 Iron deficiency anemia, unspecified (principal)
CPT/HCPCS: 96365; J1756

== ENCOUNTER 2024-02-06 12:17 | Outpatient (CLI) | payer BC, SELFPAY ==
[2024-02-06] MEDS: IRON SUCROSE COMPLEX 200 MG in 0.9 % SODIUM CHLORIDE 100 ML 220 MG IV (12:28)
[2024-02-06] MEDS: SODIUM CHLORIDE 0.9% 50ML BAG 50 ML IV (12:28)
[2024-02-06 12:32] VITALS: BP 126/65; PULSE 71; RESP 18; O2SAT 100
[2024-02-06 13:15] VITALS: BP 124/66; PULSE 85; RESP 18; O2SAT 100
== END 2024-02-06 13:15 | disposition home or self-care (01) ==
LOC: INF 12:17
PROVIDERS: PCP Internal Medicine; Visit Provider Internal Medicine
DX: D50.9 Iron deficiency anemia, unspecified (principal)
CPT/HCPCS: 96365; J1756

== ENCOUNTER 2024-02-09 12:24 | Outpatient (CLI) | payer BC, SELFPAY ==
[2024-02-09 12:32] VITALS: BP 122/67; PULSE 68; RESP 16; TEMP 36.6; O2SAT 97
[2024-02-09] MEDS: IRON SUCROSE COMPLEX 200 MG in 0.9 % SODIUM CHLORIDE 100 ML 220 MG IV (12:32)
[2024-02-09] MEDS: SODIUM CHLORIDE 0.9% 10ML FLUSH SYRINGE 10 ML IV (12:32)
[2024-02-09] MEDS: SODIUM CHLORIDE 0.9% 50ML BAG 50 ML IV (12:33)
[2024-02-09 13:20] VITALS: BP 111/72; PULSE 71; RESP 16; TEMP 36.6; O2SAT 98
== END 2024-02-09 13:25 | disposition home or self-care (01) ==
LOC: INF 12:25
PROVIDERS: PCP Internal Medicine; Visit Provider Internal Medicine
DX: E61.9 Deficiency of nutrient element, unspecified (principal)
CPT/HCPCS: 96365; J1756

== ENCOUNTER 2024-02-11 11:26 | Outpatient (CLI) | payer BC, SELFPAY ==
[2024-02-11] MEDS: SODIUM CHLORIDE 0.9% 50ML BAG 50 ML IV (11:36)
[2024-02-11 11:45] VITALS: BP 114/65; PULSE 77; RESP 17; O2SAT 99
[2024-02-11] MEDS: IRON SUCROSE COMPLEX 200 MG in 0.9 % SODIUM CHLORIDE 100 ML 220 MG IV (11:45)
[2024-02-11 12:15] VITALS: BP 112/67; PULSE 72; RESP 16
== END 2024-02-11 12:30 | disposition home or self-care (01) ==
LOC: INF 11:27
PROVIDERS: PCP Internal Medicine; Visit Provider Internal Medicine
DX: E61.1 Iron deficiency (principal)
CPT/HCPCS: 96365; J1756

== ENCOUNTER 2024-02-13 11:56 | Outpatient (CLI) | payer BC, SELFPAY ==
[2024-02-13] MEDS: IRON SUCROSE COMPLEX 200 MG in 0.9 % SODIUM CHLORIDE 100 ML 220 MG IV (12:07)
[2024-02-13] MEDS: SODIUM CHLORIDE 0.9% 50ML BAG 50 ML IV (12:07)
[2024-02-13 12:10] VITALS: BP 138/79; PULSE 71; RESP 17
[2024-02-13 12:40] VITALS: BP 132/68; PULSE 70; RESP 16
== END 2024-02-13 12:57 | disposition home or self-care (01) ==
LOC: INF 11:57
PROVIDERS: PCP Internal Medicine; Visit Provider Internal Medicine
DX: E61.1 Iron deficiency (principal)
CPT/HCPCS: 96365; J1756